=== PATIENT | female | born 1955 | race Caucasian/White ===

== ENCOUNTER 2025-01-30 14:24 | Outpatient (REF) | payer OTHER, MEDICARE, SELFPAY ==
[2025-01-30 17:24] LABS: Urine Cytology See Pathology rpt
--- OUTSIDE RECORDS SUMMARY | 2025-01-30 17:55 | XMS_ITS | Clinical Summary ---
Author Organization [facility] Address [address] [place] [address] Care Team Providers Care Seam Presser Name Role Phone Sara Piper MD Primary Care Provider [phone] Allergies No known active allergies Medications Medication [...] age to complete this topic Care Teams Seam Presser Relationship Specialty Start Date End Date Sara Piper MD [address] [place] [address] PCP - General Family Medicine 10/21/18
== END 2025-01-30 14:25 | disposition home or self-care (01) ==
LOC: HO.LNP 14:24
PROVIDERS: PCP Family Medicine; Visit Provider Urology
DX: R30.0 Dysuria (principal)
CPT/HCPCS: 51798; 81003; 87086; 88112

== ENCOUNTER 2025-01-30 14:24 | Outpatient (AMB) | payer OTHER, MEDICARE, SELFPAY ==
--- NOTE | 2025-01-30 14:38 | MHC.OFFVIS ---
Intake Visit Reasons: uti symptoms Intake Note: New patient presents today for initial visit for uti symptoms Urology Medication:none Blood Thinner:none Antibiotic Allergies:none PVR:0ml's Allergies No Known Allergies Allergy (Verified 01/30/25 15:07) HPI Comments Details: 01/30/25-- History of Present Illness--So is a 69-year-old female who was referred due to persistent UTI symptoms of frequency. The patient states that she had her scheduled farm equipment assembler appointment in 10/12/2024 at that time her farm equipment assembler told her that she had a UTI. She was treated with the antibiotics. She states that the symptoms of urinary frequency did not completely resolve. She also has some intermittent dysuria. She states her farm equipment assembler sent her for a renal ultrasound bladder ultrasound and pelvic ultrasound. I received the ultrasound reports kidney and bladder ultras 4 mg daily ound are within normal limits. She states that her farm equipment assembler placed her on estradiol suppository twice a week. I have discussed further evaluation with office cystoscopy will send urine for surveillance culture and cytology. I have discussed treatment of urinary symptoms with Pyridium x 3 dys and anticholinergic Detrol LA 4mg daily. Urinary Symptoms Review - Increased frequency of urination - Urinary urgency - Nocturia up to 3-4 times per night - Intermittent burning sensation during urination - Pelvic pain - Voiding clear urine frequently - Persistent post-void discomfort Results - Urinalysis: Negative for leukocytes and nitrates - Ultrasound: Normal findings for bladder and kidneys Review of Systems Const All systems reviewed & are unremarkable except as noted in HPI and below Reports no additional complaints Eyes Reports no additional complaints ENT Reports no additional complaints Card Reports no additional complaints Resp Reports no additional complaints GI Reports no additional complaints Reports as per HPI Musc Reports no additional complaints Skin/Breast Reports system reviewed and no additional complaints, except as documented Neuro Reports no additional complaints Psych Reports no additional complaints Endo Reports no additional complaints Ghanshyam/Lymph Reports no additional complaints Aller/Immun Reports no additional complaints Physical Exam Const General: cooperative, healthy appearing and no acute distress Orientation/consciousness: patient oriented x3 HEENT Head: Yes normal to inspection, Yes normocephalic and Yes atraumatic Eyes Conjunctivae: conjunctivae normal Neck Neck: Yes normal visual inspection and Yes trachea midline Chest Chest palpation & inspection: normal inspection of the chest Resp Effort & Inspection: normal respiratory effort GI Inspection: Yes normal to inspection Neuro General: patient oriented x3 Psych Appearance: grossly normal Office Procedures Post Void Residual Post Residual Void Post Void Residual (PVR): 0 [id number] Void Residual by ultrasound Results AMB Urinalysis, Automated UA Leukoctes 0 Luciano/uL Last Edit by Miri Mikey on 01/30/25 15:37 UA Nitrite Negative Last Edit by Miri Jensen on 01/30/25 15:37 UA Urobilinogen 3.5 mg/dL Last Edit by Miri Jensen on 01/30/25 15:37 UA Protein 1 mg/dL Last Edit by Miri Jensen on 01/30/25 15:37 UA pH 5.5 Last Edit by Miri Jensen on 01/30/25 15:37 UA Blood 10 Michael/uL Last Edit by Miri Jensen on 01/30/25 15:37 UA Specific [place] 1.030 Last Edit by Miri Jensen on 01/30/25 15:37 UA Ketone Negative Last Edit by Miri Jensen on 01/30/25 15:37 UA Bilirubin 0 mg/dL Last Edit by Miri Jensen on 01/30/25 15:37 UA Glucose 0 mg/dL Last Edit by Miri Jensen on 01/30/25 15:37 Results Reviewed Results Reviewed: Laboratory Last Values Urine pH (Auto) 5.5 01/30/25 15:23 Specific [place] (Auto) 1.030 01/30/25 15:23 Urine Protein (Auto) 1 mg/dL 01/30/25 15:23 Glucose (UA)(Auto) 0 mg/dL 01/30/25 15:23 Urine Ketones (Auto) Negative 01/30/25 15:23 Urine Blood (Auto) 10 Michael/uL 01/30/25 15:23 Urine Nitrite (Auto) Negative 01/30/25 15:23 Urine Bilirubin (Auto) 0 mg/dL 01/30/25 15:23 Urine Urobilinogen (Auto) 3.5 mg/dL 01/30/25 15:23 Leukocyte Esterase (Auto) 0 Luciano/uL 01/30/25 15:23 Assessment & Plan Assessment & Plan Plan Discussion Notes I discussed with the patient the management plan addressing her irritative urinary symptoms. I explained the rationale for starting Detrol LA to reduce urinary urgency and frequency, and the role of pyridium in alleviating discomfort. The need for a cystoscopy to directly visualize the bladder lining and exclude any structural or pathological causes was reviewed, with the patient providing consent for this procedure. We discussed the continuation of intravaginal estradiol, emphasizing its benefits in maintaining vaginal tissue integrity and potentially alleviating some urinary symptoms. I advised her on the expected outcomes and possible side effects of the new medications and reassured her of close follow-up to assess her progress. Orders: Orders Urine Culture Today Z13.9 - Encounter for screening, unspecified Urine Cytology Today Z13.9 - Encounter for screening, unspecified AMB Urinalysis Automated Today Z13.9 - Encounter for screening, unspecified Medications: New tolterodine ER start tolterodine in 3 days after you have completed the pyridium 4 mg PO DAILY 30 caps 3RF phenazopyridine (Pyridium) take with food 200 mg PO DAILY 3 days 3 tabs 0RF Patient Instructions: Patient Instructions - Begin Detrol LA 4 mg daily for urinary symptoms - Take pyridium 200 mg daily for 3 days for burning sensation - Continue intravaginal estradiol (Vagifem) as prescribed - Schedule and prepare for upcoming cystoscopy - Monitor urinary symptoms and report any significant changes - Follow up as scheduled to discuss treatment progress and results The patient had an opportunity to ask questions regarding treatment plan. The patient expressed understanding and agreement with the above treatment plan. The patient is aware they should contact our office by phone for worsening of their current condition or the appearance of new symptoms. Compliance is encouraged with any medications and followup testing that is ordered. It is a privilege to be allowed the opportunity to participate in the urologic care of your patient. If you have any questions or concerns regarding treatment for the above conditions please do not hesitate to contact me. The office telephone contact is [phone]. This note is constructed in part using voice recognition software. While every effort has been made to ensure accuracy air transportation provider errors may have been included. Yours sincerely, Pepper Escobar MD Scribe Plan - Not visible on output: Patient was informed and verbally consented to the use of an ambient scribe for clinic note documentation during this visit. Coding CPT Codes Post Residual Void - PVR CPT Code: 15612-Xrqg Void Residual by ultrasound ([id number])
--- OUTSIDE RECORDS SUMMARY | 2025-01-30 16:26 | XMS_ITS | Patient Health Record ---
Author Organization [facility] Address [address] [place] [address] Care Team Providers Care Marketer Name Role Phone JAMESON BOLES Primary Care Provider Unavailab drea BlakeShama Unavailable [phone] Allergies No Known Allergies Results Component Value Reference Range Notes Urinalysis Reviewed date:10/12/2024 12:49:44 PM Interpretation: Performing Lab: Notes/Report: NITRITE Neg PH 6.0 PROTEIN Trace S.G 1.015 WBC Large GLUCOSE Neg KETONES Neg UROBILINOGEN Neg BILIRUBIN Neg BLOOD Small Urinalysis, Complete-[id number] Reviewed date:10/14/2024 08:20:37 AM Interpretation: Performing Lab:[facility], [address], Phone - [phone], Director - Mary Notes/Report: Specific Hughes 1.016 1.005-1.030 pH 6.5 5.0-7.5 Urine-Color Yellow Yellow Appearance Clear Clear WBC Esterase 2+ Negative Protein Negative Negative/Trace Glucose Negative Negative Ketones Negative Negative Occult Blood Negative Negative Bilirubin Negative Negative Urobilinogen,Semi-Qn 0.2 0.2-1.0 mg/dL Nitrite, Urine Negative Negative Microscopic Examination See below: Micr oscopic was indicated and was performed. WBC 0-5 0 - 5 /hpf RBC 0-2 0 - 2 /hpf Epithelial Cells (non renal) 0-10 0 - 10 /hpf Casts None seen None seen /lpf Bacteria Many None seen/Few Urine Culture, Routine-[id number] Reviewed date:10/14/2024 08:20:21 AM Interpretation: Performing Lab:[facility], [address] [facility] [address], Phone - [phone], Director - Mary Notes/Report: Urine Culture, Routine Final report Result 1 Beta hemolytic Streptococcus, group B 50,000-100,000 colony forming units per mL Penicillin and ampicillin are drugs of choice for treatment of beta-hemolytic streptococcal infections. Susceptibility testing of penicillins and other beta-lactam agents approved by the FDA for treatment of beta-hemolytic streptococcal infections need not be performed routinely because nonsusceptible isolates are extremely rare in any beta-hemolytic streptococcus and have not been reported for Streptococcus pyogenes (group A). (CLSI) [id number] IGP No Culture 30 Plus Reviewed date:10/25/2024 08:40:06 PM Interpretation: Performing Lab:[facility], [address] [place] [address], Phone - [phone], Director - [facility] Notes/Report: Clinical Information:Vaginal/Cervical, LMP: Men o [id number] Dates / Results....09/13/20 NIL, Neg HPV Other..............Post Menopausal No. of containers..01 ThinPrep Vial DIAGNOSIS: EPITHELIAL CELL ABNORMALITY. ATYPICAL SQUAMOUS CELLS OF UNDETERMINED SIGNIFICANCE (ASC-US). Specimen adequacy: Satisfactory for evaluation. Endocervical and/or squamous metaplastic cells (endocervical component) are present. Clinician provided ICD10: Z0 1.419 Performed by: Lexie Wills, Curriculum Specialist (ASCP) Electronically signed by: Jed Grimaldo MD, Pathologist . . Pathologist provided ICD10: R87.610 Note: The Pap smear is a screening test designed to aid in the detection of premalignant and malignant conditions of the uterine cervix. It is not a diagnostic procedure and should not be used as the sole means of detecting cervical cancer. Both false-positive and false-negative reports do occur. . Test Methodology: This liquid based ThinPrep(R) pap test was screened with the use of an image guided system. HPV Aptima Negative Negative This nucleic acid amplification test detects fourteen high-risk HPV types (16,18,31,33,35,39,45,51,52 ,56,58,59,66,68) without differentiation. HPV Genotype Reflex Criteria not met, HPV Genotype not performed. PDF Report Reviewed date:10/14/2024 08:15:01 AM Interpretation: Performing Lab:[facility], [address] [place] [address], Phone - [phone], Director - Mary Notes/Report: Urinalysis Reviewed date:11/09/2024 01:12:17 PM Interpretation: Performing Lab: Notes/Report: NITRITE Neg PH 6.0 PROTEIN Trace S.G 1.015 WBC Trace GLUCOSE Neg KETONES Neg UROBILINOGEN Neg BILIRUBIN Neg BLOOD Trace Urinalysis, Complete-[id number] Reviewed date:11/11/2024 08:10:54 AM Interpretation: Performing Lab:[facility], [address] [place] [address], Phone - [phone], Director - Mary Notes/Report: Specific Hughes 1.018 1.005-1.030 pH 6.5 5.0-7.5 Urine-Color Yellow Yellow Appearance Clear Clear WBC Esterase Trace Negative Protein Negative Negative/Trace Glucose Negative Negative Ketones Negative Negative Occult Blood Negative Negative Bilirubin Negative Negative Urobilinogen,Semi-Qn 1.0 0.2-1.0 mg/dL Nitrite, Urine Negative Negative Microscopic Examination See below: Micr oscopic was indicated and was performed. WBC 0-5 0 - 5 /hpf RBC None seen 0 - 2 /hpf Epithelial Cells (non renal) 0-10 0 - 10 /hpf Casts None seen None seen /lpf Crystals Present N/A Crystal Type Calcium Oxalate N/A Bacteria None seen None seen/Few Urine Culture, Routine-[id number] Reviewed date:11/11/2024 09:34:13 AM Interpretation: Performing Lab:[facility], [address] [place] [address], Phone - [phone], - Mary Notes/Report: Urine Culture, Routine Final report Result 1 Culture shows less than 10,000 colony forming units of bacteria per milliliter of urine. This colony count is not generally considered to be clinically significant. PDF Report Reviewed date:11/11/2024 08:10:02 AM Interpretation: Performing Lab:[facility], [address] [place] [address], Phone - [phone], - Mary Notes/Report: PDF Report Reviewed date:10/25/2024 08:40:20 PM Interpretation: Performing Lab:[facility], [address] [place] [address], Phone - [phone], - Piedad Notes/Report: Clinical Information:Vaginal/Cervical, LMP: Men o [id number] Dates / Results....09/13/20 NIL, Neg HPV Other..............Post Menopausal No. of containers..01 ThinPrep Vial Reason For Referral No Information Medications Medication SIG (Take, Route, Frequency, Duration) Notes Start Date End Date Status Estradiol 10 MCG 1 tablet Vaginal Two times a Week for 90 days 11/09/2024 Active Levothyroxine Sodium 25 MCG Oral for 90 Active Losartan Potassium 50 MG Oral for 90 Active Vitamin D 25 MCG (1000 UT) 1 tablet Oral ly Once a day for 30 day(s) Active Pravastatin Sodium 20 MG 1 tablet Orally Once a day Active Augmentin 500-125 MG 1 tablet Orally mandie ry 12 hrs for 7 day(s) 10/14/2024 Active Social History Tobacco Use: Social History Observation Description Date Details (start date - stop date) Never Smoker NA - NA Sexual History Question Answer Notes Had sex in the past 12 months (vaginal, oral, or anal)? Yes with Men only Tobacco use other than smoking: Question Answer Notes Are you an other tobacco user? No AUDIT-C (Standard) Question Answer Notes Did you have a drink contain ing alcohol in the past year? Yes How often did you have six o r more drinks on one occasion in the past year? Never (0 point) How many drinks did you have on a typical day when you were drinking in the past year? 1 or 2 drinks (0 point) How often did you have a dri nk containing alcohol in the past year? Monthly or less (1 point) Points 1 Interpretation Negative Tobacco Control (Standard) Question Answer Notes Tobacco use: Nonsmoker Problems Problem Type SNOMED Code ICD Code Onset Dates Problem Status W/U Status Risk Notes Problem Postmenopausal atrophic vaginitis (92469525) Postmenopausal atrophic vaginitis (N95.2) Active confirmed Problem Polyp of corpus uteri (90299193) Polyp of corpus uteri (N84.0) Active confirmed Problem Atrophy of vulva (054679658) Atrophy of vulva (N90.5) Active confirmed Problem Postcoital bleeding (56436535) Postcoital and contact bleeding (N93.0) Active confirmed Problem History of dysplasia of cervix (217425338) Personal history of cervical dysplasia (Z87.410) Active confirmed Problem Essential hypertension (66540187) Unspecified essential hypertension (401.9) Active confirmed Major Problem Infective arthritis (disorder) (949117417) Unspecified infective arthritis, site unspecified (711.90) Active confirmed Major Problem Postmenopausal bleeding (25825036) Postmenopausal bleeding (627.1) Active confirmed Major Problem Menopausal symptom (91997546) Symptomatic menopausal or female climacteric states (627.2) Active confirmed Major Problem Atypical glandular cells on cervical Papanicolaou smear (458325299) Abnormal glandular Papanicolaou smear of cervix (795.00) Active confirmed Major Problem Gynecological examination normal (744292442444247) Routine gynecological examination (V72.31) Active confirmed Problem Screening for malignant neoplasm of colon (859992022) Special screening for malignant neoplasms, colon (V76.51) Active confirmed Major Vital Signs Temperature 97.7 degrees Fahrenheit 11/09/2024 Blood pressure diastolic 80 mm Hg 11/09/2024 Height 63 in 11/09/2024 Blood pressure systolic 140 mm Hg 11/09/2024 Weight 205 lbs 11/09/2024 BMI 36.31 kg/m2 11/09/2024 Encounters Encounter Location Date Provider Diagnosis [facility] [address] [address] 10/12/2024 Shama Blake Encounter for gynecological examination (general) (routine) without abnormal findings Z01.419 ; Encounter for screening mammogram for malignant neoplasm of breast Z12.31 ; Unspecified lump in the right breast, overlapping quadrants N63.15 ; Nocturia R35.1 ; Personal history of cervical dysplasia Z87.410 ; Encounter for screening for osteoporosis Z13.820 and Postmenopausal atrophic vaginitis N95.[address] [address] 11/09/2024 Shama Blake Frequency of micturition R35.0 ; Left lower quadrant pain R10.32 and Postmenopausal atrophic vaginitis N95.[address] [address] 10/14/2024 Shama Blake [facility] [address] [address] 11/29/2024 Shama Blake Assessments Encounter Date Diagnosis (ICD Code) Assessment Notes Treatment Notes Treatment Clinical Notes Section Notes 10/12/2024 Encounter for gynecological examination (general) (routine) without abnormal findings (ICD-10 - Z01.419) PAP TEST WITH HPV TYPING WAS OBTAINED. 11/09/2024 Frequency of micturition (ICD-10 - R35.0) DISCUSSED COMMON CAUSES OF URGENCY AND FREQUENCY. UA AND URINE C/S INCREASE FLUID INTAKE. 11/09/2024 Left lower quadrant pain (ICD-10 - R10.32) PELVIC AND RETROPERITONEAL ULTRASOUNDS WERE ORDERED. 10/12/2024 Encounter for screening mammogram for malignant neoplasm of breast (ICD-10 - Z12.31) REGULAR MAMMOGRAMS AND SBE'S WERE RECOMMENDED. 10/12/2024 Unspecified lump in the right breast, overlapping quadrants (ICD-10 - N63.15) DISCUSSED FINDINGS AND ORDERED DIAGNOSTIC MAMMOGRAM AND LEFT BREAST ULTRASOUND. 11/09/2024 Postmenopausal atrophic vaginitis (ICD-10 - N95.2) DISCUSSED FINDINGS, DX AND TX OPTIONS. DISCUSSED HOW INTRAVAGINAL ESTROGEN MAY HELP DECREASE UTI RISKS. SHE AGREED TO TRY YUVAFEM. RX AND INSTRUCTIONS WERE GIVEN. 10/12/2024 Nocturia (ICD-10 - R35.1) OFFICIAL UA AND URINE C/S DISCUSSED BLADDER TRAINING. 10/12/2024 Personal history of cervical dysplasia (ICD-10 - Z87.410) DISCUSSED PREVIOUS HX OF TAINA AND SUBSEQUENTLY NEGATIVE PAP TESTS. REPEAT PAP TEST WITH HPV TYPING WAS OBTAINED TODAY. 10/12/2024 Encounter for screening for osteoporosis (ICD-10 - Z13.820) BONE DENSITY WAS ORDERED. 10/12/2024 Postmenopausal atrophic vaginitis (ICD-10 - N95.2) DISCUSSED FINDINGS, DX AND TX OPTIONS. ENCOURAGED PAT TO USE ESTRADIOL CREAM. BENEFITS AND RISKS WERE AGAIN DISCUSSED. Plan Of Treatment Pending Test Test Name Order Date Sonohysterogram 12/26/2021 MAMMOGRAM, SCREENING 10/01/2022 MAMMOGRAM, SCREENING 04/18/2015 MAMMOGRAM, SCREENING 09/30/2021 MAMMOGRAM, SCREENING 10/12/2024 Urinalysis 09/30/2021 Urinalysis 12/26/2021 Urinalysis 07/06/2018 Urinalysis 08/24/2019 Ultrasound : Retroperitoneal 11/09/2024 ENDOMETRIAL BX 12/26/2021 DIAGNOSTIC MAMMOGRAM, LEFT BREAST 2023 BONE DENSITY 10/12/2024 BONE DENSITY 07/06/2018 BONE DENSITY 10/07/2023 MM Digital Mammo Screening 10/12/2024 MM Digital Mammo Screening 10/07/2023 MM Digital Mammo Screening 09/30/2021 MM Digital Mammo Screening 10/01/2022 MM Digital Mammo Screening 07/06/2018 Left Breast Ultrasound 10/12/2024 PELVIC ULTRASOUND W/TRANSVAGINAL 024 Next Appt Details Provider Name:Shama moyer, 10/13/2025 09:10:00 AM, [address], [address], [place], [address], Insurance Providers Payer Name Payer Address Payer Phone Subscriber Number Group Number Insured Name Patient Relationship to Insured Coverage Start Date Coverage End Date MEDICARE [address] [facility] [place] [id number] JAIR ROMO Self - patient is the insured [facility] [address] [place] [address] [id number] JAIR ROMO Self - patient is the insured Medical (General) History Medical History History ICD Code Essential (primary) hypertension I10 Menopausal and female climacteric states N95.1 Postmenopausal bleeding N95.0 Direct infection of unspecif ied joint in infectious and parasitic diseases classified elsewhere M01.X0 Unspecified abnormal cytological finding s in specimens from cervix uteri R87.619 Hemorrhage of anus and rectum K62.5 Hyperlipidemia, unspecified E78.5 Atrophy of vulva N90.5 Personal history of cervical dysplasia Z 87.410 Postmenopausal atrophic vaginitis N95.2 Mastodynia N64.4 Postcoital and contact bleeding N93.0 Polyp of corpus uteri N84.0 Surgical History Surgery Date(Month/Year) Appendectomy Pelviscopy Lysis of Adhesions Excision of Tubalar Lesion Colonoscopy 2011 Left Knee Surgery EMB & Polypectomy 02/06/12 Bilateral Tubal Ligation Laparoscopy Total Right Knee Replacement 07/11/19 Hospitalization History Reason Date(Month/Year) See Surgical Hx 2 Vaginal Deliveries
--- OUTSIDE RECORDS SUMMARY | 2025-01-30 16:26 | XMS_ITS | Clinical Summary ---
Author Organization [facility] Address [address] [place] [address] Care Team Providers Care Cap Jewel Plate Assembler Name Role Phone Sara Piper MD Primary Care Provider Allergies No known active allergies Medications Medication Sig Dispensed Refills Start Date End Date Status lisinopril (PRINIVIL,ZESTRIL) tablet 10 mg Take 10 mg by mouth daily. 1 10/27/2018 Active piroxicam (FELDENE) 20 MG capsule TAKE 1 CAPSULE BY MOUTH EVERY DAY WITH FOOD 0 09/28/2018 Active pravastatin (PRAVACHOL) tablet 20 mg TAKE 1 TABLET AT BEDTIME 3 11/08/2018 Active tiZANidine (ZANAFLEX) 2 MG tablet TAKE 1-3 TABLETS BY MOUTH AT BEDTIME NEEDED 1 09/08/2018 Active omeprazole (PriLOSEC) 20 MG capsule TAKE 1 CAP BY MOUTH DAILY. REGULARLY FOR 6 WEEKS THEN NEEDED FOR HEART BURN 3 03/02/2019 Active omeprazole (PriLOSEC) 20 MG capsule Take 20 mg by mouth. 0 03/02/2019 Active Family History Medical History Relation Name Comments Cancer Father Cancer Mother Clotting disorder Mother Relation Name Status Comments Father Mother Social History Tobacco Use Types Packs/Day Years Used Date Smoking Tobacco: Never Assessed Sex and Gender Information Value Date Recorded Sex Assigned at Not on file Gender Identity Not on file Sexual Orientation Not on file Job Start Date Occupation Industry Not on file Not on file Not on file Last Filed Vital Signs Vital Sign Reading Time Taken Comments Blood Pressure - - Pulse - - Temperature - - Respiratory Rate - - Oxygen Saturation - - Inhaled Oxygen Concentration - - Weight 86.2 kg (190 lb) 12/09/2018 10:23 AM EST Height 160 cm (5' 3 ) 12/09/2018 10:23 AM EST Body Mass Index 33.66 12/09/2018 10:23 AM EST Plan of Treatment Health Maintenance Due Date Last Done Comments Hepatitis C Screening 1955 COVID-19 Vaccine (#1) 06[birth year]01/1957 Depression Screening 1968 BMI Counseling 1974 Preventative Health Evaluation 1974 DTap / Tdap / Td (1 - Tdap) 1975 Colon Cancer Screening (Colonoscopy) 2001 Breast Cancer Screening (Mammogram) 2006 Shingrix-Zoster Vaccine (1 of 2) 2006 Fall Risk Assessment 2021 Osteoporosis Screening (DEXA Scan) 2021 Pneumococcal Vaccine (1 of 1 - PCV) 2021 Influenza Vaccine (#1) 2024 RSV Adult > 60+ Yrs or Pregn ant (1 - 1-dose 75+ series) 2031 Hepatitis B Vaccines Aged Out No long er eligible based on patient's age to complete this topic RSV Ped < 20 months Aged Out No longe r eligible based on patient's age to complete this topic Care Teams Cap Jewel Plate Assembler Relationship Specialty Start Date End Date Sara Piper MD [address] [place] [address] PCP - General Family Medicine 10/21/18
--- OUTSIDE RECORDS SUMMARY | 2025-01-30 16:26 | XMS_ITS ---
Author Organization [facility] Address [address] [place] [address] Care Team Providers Care Time Study Technologist Name Role Phone JAMESON BOLES Primary Care Provider Unavailab drea BlakeNellali Unavailable [phone] Allergies No Known Allergies Results Component Value Reference Range Notes Urinalysis Reviewed date:11/09/2024 01:12:17 PM Interpretation: Performing Lab: Notes/Report: NITRITE Neg PH 6.0 PROTEIN Trace S.G 1.015 WBC Trace GLUCOSE Neg KETONES Neg UROBILINOGEN Neg BILIRUBIN Neg BLOOD Trace Urinalysis, Complete-[id number] Reviewed date:11/11/2024 08:10:54 AM Interpretation: Performing Lab:[facility], [place] [facility], Phone - [phone], Director - Mary Notes/Report: Specific [place] 1.018 1.005-1.030 pH 6.5 5.0-7.5 Urine-Color Yellow [...] Bacteria None seen None seen/Few Urine Culture, Routine-[id number] Reviewed date:11/11/2024 09:34:13 AM Interpretation: Performing Lab:[facility], [address] [place] [facility], [place], Phone - [phone], Director - Mary Notes/Report: Urine Culture, Routine Final report Result 1 Culture shows less than 10,000 colony forming units of bacteria per milliliter of urine. This colony count is not generally considered to be clinically significant. PDF Report Reviewed date:11/11/2024 08:10:02 AM Interpretation: Performing Lab:[facility], [address], [place], Phone - [phone], Director - Mary Notes/Report: REASON FOR VISIT ? UTI Medications Medication SIG (Take, Route, Frequency, Duration) Notes Start Date End Date Status Estradiol 10 MCG 1 tablet Vaginal Two times a Week for 90 days 11/09/2024 Active Levothyroxine Sodium 25 MCG Oral for 90 Active Losartan Potassium 50 MG Oral for 90 Active Pravastatin Sodium 20 MG 1 tablet Orally Once a day Active Augmentin 500-125 MG 1 tablet Orally mandie ry 12 hrs for 7 day(s) 10/14/2024 Active Vitamin D 25 MCG (1000 UT) 1 tablet Oral ly Once a day for 30 day(s) Active Vital Signs Temperature 97.7 degrees Fahrenheit 11/09/20 24 Blood pressure systolic 140 mm Hg 11/09/20 24 Blood pressure diastolic 80 mm Hg 024 Height 63 in 11/09/2024 Weight 205 lbs 11/09/2024 BMI 36.31 kg/m2 11/09/2024 Encounters Encounter Location Date Provider Diagnosis [address] [address] 11/09/2024 Shama Blake Frequency of micturition R35.0 ; Left lower quadrant pain R10.32 and Postmenopausal atrophic vaginitis N95.2 Assessments Encounter Date Diagnosis (ICD Code) Assessment Notes Treatment Notes Treatment Clinical Notes Section Notes 11/09/2024 Frequency of micturition (ICD-10 - R35.0) DISCUSSED COMMON CAUSES OF URGENCY AND FREQUENCY. UA AND URINE C/S INCREASE FLUID INTAKE. 11/09/2024 Left lower quadrant pain (ICD-10 - R10.32) PELVIC AND RETROPERITONEAL ULTRASOUNDS WERE ORDERED. 11/09/2024 Postmenopausal atrophic vaginitis (ICD-10 - N95.2) DISCUSSED FINDINGS, DX AND TX OPTIONS. DISCUSSED HOW INTRAVAGINAL ESTROGEN MAY HELP DECREASE UTI RISKS. SHE AGREED TO TRY YUVAFEM. RX AND INSTRUCTIONS WERE GIVEN. Plan Of Treatment Medication Medication Name Sig Start Date Stop Date Notes Estradiol 10 MCG 1 tablet Vaginal Two times a Week for 90 days 11/09/2024 Treatment Notes Assessment Notes Frequency of micturition DISCUSSED COMMON CAUSES OF URGENCY AND FREQUENCY. UA AND URINE C/S INCREASE FLUID INTAKE. Left lower quadrant pain PELVIC AND RETR OPERITONEAL ULTRASOUNDS WERE ORDERED. Postmenopausal atrophic vaginitis DISCUSSED FINDINGS, DX AND TX OPTIONS. DISCUSSED HOW INTRAVAGINAL ESTROGEN MAY HELP DECREASE UTI RISKS. SHE AGREED TO TRY YUVAFEM. RX AND INSTRUCTIONS WERE GIVEN. Pending Test Test Name Order Date Ultrasound : Retroperitoneal 11/09/2024 PELVIC ULTRASOUND W/TRANSVAGINAL 024 Next Appt Details Follow Up: prn, Reason: Provider Name:Shama moyer, 10/13/2025 09:10:00 AM, [address], [address], [place], [address], Progress Notes * JAIR ROMODOB:1955 (68 yo F)Acc No.[id number]:11/09/2024 PROGRESS NOTES Patient:?CLARISSA JAIR Appointment Provider:?Shama moyer M.D. :1955???Age:68 Y???Sex:Female D ate:11/09/2024 Address:[address] [place], [place] [id number] Pcp:JAMESON BOLES Subjective: * Chief Complaints: * ? UTI * HPI: ???New/Follow-up Patient Consult:? PAT WAS JUST TREATED FOR A UTI LAST SEPTEMBER WITH A 7 DAY COURSE OF AUGMENTIN AFTER A POSITIVE URINE C/S RESULT.? SHE HAD C/O URGENCY AND FREQUENCY.? HER SYMPTOMS HAVE NOT RESOLVED.? SHE NOW ALSO C/O LLQ PAINS.? SHE DENIES DYSURIA BUT HAS PRESSURE SYMPTOMS AFTER URINATION.? NO FEVER OR FLANK PAINS. * ROS:?general:?no?chest pain.?no?palpitations.?no?headache.?no?cough.?no?shortness of breath.?no?fever.?no?unexplained weight loss.?no?nausea/vomiting.?no?change in bowel movements.?no blood in stool.?genitourinary complaints?yes,?URGENCY AND FREQUENCY AND PRESSURE DISCOMFOR AFTER URINATION.?no?skin complaints.? * Medical History:? * Programming Coordinator History:?/ Para?3/2.?Sexual activity?currently sexually active.?Last Pap Smear:?10/12/24 ASCUS, NEG HPV, 09/13/20 NIL, NEG HPV, 05/20/2017 NIL, NEG HRHPV.?Mammogram:?01/22/24 < 50% density, 01/21/23 < 50% density, 01/20/22 < 50% density, 12/18/20 Unilat Left, 12/09/20 < 50% density, 11/04/19 < 50% density, 02/2018 normal, 07/25/2015 , < 50% density.?LMP and menses?Calvin.? Control:?Bilateral Tubal Ligation.?Colonoscopy?yes 2017.?Bone Density:?11/04/192011.? * OB History:?Total pregnancies?3.?Total living children?2.?NVD?2.? * Medications:?TakingVitamin D 25 MCG (1000 UT) Tablet 1 tablet Orally Once a day Pravastatin Sodium 20 MG Tablet 1 tablet Orally Once a day Levothyroxine Sodium 25 MCG Tablet Oral Losartan Potassium 50 MG Tablet Oral Augmentin 500-125 MG Tablet 1 tablet Orally every 12 hrs Taking Vitamin D 25 MCG (1000 UT) Tablet 1 tablet Orally Once a day Taking Pravastatin Sodium 20 MG Tablet 1 tablet Orally Once a day Taking Levothyroxine Sodium 25 MCG Tablet Oral Taking Losartan Potassium 50 MG Tablet Oral Taking Augmentin 500-125 MG Tablet 1 tablet Orally every 12 hrs * Allergies:?N.K.D.A.no[Allerg ies Verified] Objective: * Vitals:?Ht: 63 in, Wt: 205 l bs, BMI:36.31Index, BP: 140/80 mm Hg, Temp: 97.7 F. * Examination: ???General Examination: ?GENERAL APPEARANCE:?in no acute distress, well developed, well nourished.?BACK:?NO CVA TENDERNESS.?GINNER HELPER exam: ?EXTERNAL GENITALIA:?Normal female. No lesions, erythema or discharge.?VAGINA:?atrophic changes.?CERVIX:?No cervical motion tenderness, discharge or lesions.?UTERUS:?normal size, shape and consistency, normal mobility, nontender.?ADNEXA:?no masses or tenderness bilaterally.? Assessment: * Assessment: 1.?Frequency of micturition - R35.0???2.?Left lower quadrant pain - R10.32???3.?Postmenopausal atrophic vaginitis - N95.2??? Plan: * Treatment: ? Value Reference Range ?NITRITE Neg * ?PH 6.0 * ?PROTEIN Trace * ?S.G 1.015 * ?WBC Trace * ?GLUCOSE Neg * ?KETONES Neg * ?UROBILINOGEN Neg * ?BILIRUBIN Neg * ?BLOOD Trace * DBRUCE García 11/09/2024 08:18:5 1 AM EST > U/A and Urine C/S Sent for PREMA Notes: DISCUSSED COMMON CAUSES OF URGENCY AND FREQUENCY. UA AND URINE C/S INCREASE FLUID INTAKE.??2.?Left lower quadrant pain?Imaging: Ultrasound : Retroperitoneal* RENAL AND BLADDER ?Imaging: PELVIC ULTRASOUND W/TRANSVAGINAL* BOOKED AT [facility] [place] - 11/24/24 @ 5:45 PM ([facility] AT 5:30 PM) DAILY ENTRANCE. FULL BLADDER PREP: DRINK 32 OUNCES OF WATER ONE HOUR BEFORE AND HOLD. ORDER FAXED/PAT Notes: PELVIC AND RETROPERITONEAL ULTRASOUNDS WERE ORDERED.??3.?Postmenopausal atrophic vaginitis? Start Estradiol Tablet, 10 MCG, 1 tablet, Vaginal, Two times a Week, 90 days, 24 Tablet, Refills 3. ? Notes: DISCUSSED FINDINGS, DX AND TX OPTIONS. DISCUSSED HOW INTRAVAGINAL ESTROGEN MAY HELP DECREASE UTI RISKS. SHE AGREED TO TRY YUVAFEM. RX AND INSTRUCTIONS WERE GIVEN.?? * Procedure Codes:? * Follow Up:?prn * Images: Billing Information: * Visit Code:? * Procedure Codes:? * Sign off status: Completed true * Appointment Provider:?Shama Blake M.D. Date:?11/09/2024 Generated for [place] zhou/Suzanne/eTransmitting on:?01/30/2025 04:26 PM EDT History and Physical Notes * HPI (History of Present Illness) Category Sub-Category Detail Notes Category Not es New/Follow-up Patient Consult PAT WAS JUST TREATED FOR A UTI LAST SEPTEMBER WITH A 7 DAY COURSE OF AUGMENTIN AFTER A POSITIVE URINE C/S RESULT. SHE HAD C/O URGENCY AND FREQUENCY. HER SYMPTOMS HAVE NOT RESOLVED. SHE NOW ALSO C/O LLQ PAINS. SHE DENIES DYSURIA BUT HAS PRESSURE SYMPTOMS AFTER URINATION. NO FEVER OR FLANK PAINS. Examination Category Sub-Category Detail Notes Category Not es General Examination GENERAL APPEARANCE: in no ac frank distress, well developed, well nourished BACK: NO CVA TENDERNESS GINNER HELPER exam CERVIX: No cervical motion tendernes s, discharge or lesions VAGINA: atrophic changes EXTERNAL GENITALIA: Normal female. No le sions, erythema or discharge UTERUS: normal size, shape a nd consistency, normal mobility, nontender ADNEXA: no masses or tendern ess bilaterally
--- OUTSIDE RECORDS SUMMARY | 2025-01-30 16:26 | XMS_ITS | Data Portability ---
Author Organization [facility], , [facility] Address [address] [place] [address] Care Team Providers Care Patient Service Representative Name Role Phone JAMESON PIPER Primary Care Provider [phone] Assessment No assessment recorded. Plan of Treatment Reminders Order Date Submit Date Provider Last Modified By Organization Details Last Modified Time Details Appointments None recorded. Lab erythrocyte sedimentati on rate by westergren method 2015 016 [id number] [facility], [address] [place] [address], [address], 6 04:02:42 C-reactive protein, quantitativ e, serum or plasma 2015 016 [id number] [facility], [address] [place] [address], [address], 6 04:02:42 rf (rheumatoid factor), serum 2015 [id number] [facility], [address] [place] [address], [address], 6 04:02:42 ccp (cyclic citrullinat ed peptide) igg, serum 2015 016 [id number] [facility], [address] [place] [address], [address], 6 04:02:42 SAVITA (antinuclea r antibodies) screen, serum 2015 016 [id number] [facility], [address] [place] [address], [address], 6 04:02:42 CBC 2015 016 [facility], [address] [place] [address], [address], 6 04:02:42 roc screen, serum - cc Dr Piper ([place]) 2015 016 [facility], [address] [place] [address], [address], 6 04:02:42 Referral None recorded. Procedures None recorded. Surgeries None recorded. Imaging unlisted imaging order - x-ray, thoracic spine 2015 016 [facility] ([facility]aging), [address], [place], [address], 6 04:02:52 Medication Orders Vitamin D2 1,250 mcg (50,000 unit) capsule 2015 016 [id number], [address] [place], [address], 6 04:02:45 tizanidine 4 mg tablet 2015 016 [id number], [address] [place], [address], 6 04:02:41 Patient TargetsNo targets recorded. Patient InstructionsNo instructions recorded. Reason for Referral None Reported. Results Created Date Observation Date Name Description Value Unit Range Abnormal Flag Note LastModifiedBy Organization Detail LastModifiedTime 05/14/20 16 05/14/2016 CBC WBC 4.8 K/? ? ?L 4.0-10 .0 Not Available [address], [address], 05/14/2016 11:11:01 05/14/20 16 05/14/2016 CBC RBC 4.49 M/? ? ?L 3.93-5 .22 Not Available [address], [address], 05/14/2016 11:11:01 05/14/20 16 05/14/2016 CBC HGB 13.6 g/dL 11.2-1 5.7 Not Available [address], [address], 05/14/2016 11:11:01 05/14/20 16 05/14/2016 CBC HCT 39.4 % 34.1-4 4.9 Not Available [address], [address], 05/14/2016 11:11:01 05/14/20 16 05/14/2016 CBC MCV 87.8 ? ? ?L 79.4-9 4.8 Not Available [address], [address], 05/14/2016 11:11:01 05/14/20 16 05/14/2016 CBC MCH 30.3 pg 25.6-3 2.2 Not Available [address], [address], 05/14/2016 11:11:01 05/14/20 16 05/14/2016 CBC MCHC 34.5 g/dL 32.2-3 5.5 Not Available [address], [address], 05/14/2016 11:11:01 05/14/20 16 05/14/2016 CBC plt 273.0 K/? ? ?L 182.0- 369.0 Not Available [address], [address], 05/14/2016 11:11:01 05/14/20 16 05/14/2016 CBC MPV 8.7 9.4-12 .3 low Not Available [address], [address], 05/14/2016 11:11:01 05/14/20 16 05/14/2016 CBC neut% 63.9 % 34.0-7 1.1 Not Available [address], [address], 05/14/2016 11:11:01 05/14/20 16 05/14/2016 CBC neut# 3.1 1.6-6. 1 Not Available [address], [address], 05/14/2016 11:11:01 05/14/20 16 05/14/2016 CBC lymph % 28.1 % 19.3-5 1.7 Not Available [address], [address], 05/14/2016 11:11:01 05/14/20 16 05/14/2016 CBC lymph # 1.3 K/? ? ?L 1.2-3. 7 Not Available [address], [address], 05/14/2016 11:11:01 05/14/20 16 05/14/2016 CBC mono% 5.5 % 4.7-12 .5 Not Available [address], [address], 05/14/2016 11:11:01 05/14/20 16 05/14/2016 CBC mono# 0.3 0.2-0. 6 Not Available [address], [address], 05/14/2016 11:11:01 05/14/20 16 05/14/2016 CBC eo% 1.9 % 0.7-5. 8 Not Available [address], [address], 05/14/2016 11:11:01 05/14/20 16 05/14/2016 CBC eo# 0.1 0.0-0. 4 Not Available [address], [address], 05/14/2016 11:11:01 05/14/20 16 05/14/2016 CBC baso% 0.6 % 0.1-1. 2 Not Available [address], [address], 05/14/2016 11:11:01 05/14/20 16 05/14/2016 CBC baso# 0.0 0.0-0. 1 Not Available [address], [address], 05/14/2016 11:11:01 05/14/20 16 05/14/2016 CBC RDW-CV 12.3 % 11.7-1 4.4 Not Available [address], [address], 05/14/2016 11:11:01 05/14/20 16 05/14/2016 eryth rocyt e sedim entat ion rate by ale johnson sed rate 15.0 0.0-15 .0 Not Available [address], [address], 05/14/2016 13:02:50 05/14/20 16 05/14/2016 C-joao ctive prote in, quant itati ve, serum or plasm a C-reactive protein -quant <2.0 mg/L 0.0-9. 0 < Not Available [address], [address], 05/14/2016 14:44:15 05/14/20 16 05/15/2016 rf (rheu matoi d facto r), serum rheumatoid factor 5.2 IU/mL 0.0-16 .0 <16.0 IU/mL - Negat goldie 16.0- 19.9 IU/mL - Equiv ocal >20.0 IU/mL - Posit goldie Not Available [address], [address], 05/15/2016 14:17:20 05/14/20 16 05/15/2016 SAVITA (anti nucle ar antib odies ) scree n, serum SAVITA screen 0.32 0.00-0 .39 <0.4 -Nega tive 0.40 - 1.10 -Equi vocal >1.10 -Posi tive Not Available [address], [address], 05/15/2016 14:17:21 05/14/20 16 05/15/2016 roc scree n, serum roc-6 screen 0.03 <0.89 <0.9 -Nega tive 0.9 - 1.09 -Equi vocal >=1.1 0 -Posi tive Not Available [address], [address], 05/15/2016 14:17:21 05/14/20 16 05/20/2016 ccp (cycl ic citru llina little pepti de) igg, serum anti-citrull ine peptide Ab 1 U/mL <5 Not Available [address], [address], 05/20/2016 13:42:13 05/14/20 16 05/14/2016 x-ray , thora cic spine OBSERV ATION: Thorac ic spine 3 views Long-s jarad negro Dorsal spine pain The disc spaces , alignm ent, and minera lizati on are well mainta ined. The parave rtebra l soft tissue s are normal . There is no eviden ce of compre ssion fractu re or signif icant degene rative disc diseas e Impres viry: No signif icant radiog raphic abnorm ality Electr onical ly signed Readin g Physic ezekiel: Wesley Rice [facility] [address] , [place], [address], 05/21/2016 08:45:31 Result Notes None recorded. Problems Name Problem SNOMED Code Status Onset Date Resolution Date Notes Provider Name and Address Organization Details Recorded Time Multiple joint pain 84253282 Active 2015 Krishna Stauffer MD [address] [place], [place] [address], [address], [facility] [place] 10:07:01 Myofascial pain 404615190 Active 2015 Krishna Stauffer MD [address] [place], [place] [address], [address], [facility] [place] 16:40:28 Vitamin D deficiency 93170510 Active 2015 Krishna Stauffer MD [address] [place] [address], [place], [address], [facility] [place] 16:40:39 Osteoarthritis of knee 647449667 Active 2015 Krishna Stauffer MD [address] [place] [address] [place], [address], [facility] [place] 16:56:25 Problem Notes None recorded. Procedures Surgical History None recorded. Imaging Results Imaging Date Name Status LastModified by Organiz ation Details LastModified Time 05/14/2016 x-ray, thoracic spine completed [facility] [address] , [place], [address], 05/21/2016 08:45:31 Procedure Notes None recorded. Medical Equipment None Reported. Allergies No known drug allergies Medications Name Sig Start Date Stop Date Status Note LastModified by Organization Details LastModified Time tizanidine 4 mg tablet 1 or 2 po qhs as directed active Not Available Not Available No t Available clotrimazole-b etamethasone 1 %-0.05 % topical cream active Not Available Not Availabl e Not Available omeprazole 20 mg capsule,delaye d release active Not Available Not Available No t Available Vitamin D2 1,250 mcg (50,000 unit) capsule Take 1 capsule every week by oral route. active Not Available Not Available No t Available cholecalcifero l (vitamin D3) 25 mcg (1,000 unit) capsule TAKE ONE CAPSULE BY MOUTH EVERY DAY active Not Available Not Available No t Available Claritin active Not Available Not Avai lable Not Available Vitals Date Recorded Body weight Body height Body mass index (BMI) Heart rate Systolic blood pressure Diastolic blood pressure Systolic blood pressure Diastolic blood pressure Provider Name and Address Organization Details Last Updated DateTime 6 60066.9 5 g 160.02 cm 38.3 kg/m2 80 /min 180 mm[Hg] 100 mm[Hg] 160 mm[Hg] 80 mm[Hg] Rj Franco LPN [facility] 6 09:16:36 Social History Question Answer Notes LastModified by Organizat ion Details LastModified Time Tobacco Smoking Status Never Smoker Rj Franco LPN [facility], [facility] 05/14/2016 09:18:34 What Is Your Level Of Alcohol Consumption? Occasional Information not available 05/14/2016 How Much Tobacco Do You Chew? 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 0 [email or web address] Information not available 05/14/2016 Marital Status Informatio n not available 05/14/2016 Sex: Unknown Functional Status None recorded. Mental Status None recorded. Family History Nothing Reported. Medical History Condition Response Osteoarthritis Y Hyperlipidemia Y Hypertension Y Gynecological HistoryNo gynecological history recorded. Obstetrics History GPAL:G 0 P 0 0 0 0 Past Encounters Encounter ID Performer Location Encounter Start Date Encounter Closed Date Diagnosis/Indication Diagnosis SNOMED-CT Code Diagnosis ICD10 Code Diagnosis Note [id number] Krishna Stauffer [place] [facility] [place] [facility] [address] [place] [address] 05/14/2016 08:59:58 05/14/2016 10:13:03 Multiple joint pain 20242101 M25.50 Myofascial pain 08889977 9 M79.1 This patient is describing a few years of widespread musculoske letal pains, but on questionin g, the primary area of discomfort is in the right scapular region or just below the lower aspect of the shoulder blade. It seems muscular. The area is slightly tender. Movement of the spine does not seem to reproduce the symptoms. She has features suggesting a component of myofascial pain syndrome/f ibromyalgi a. She has a nonrestora tive, disrupted sleep. She has a mild degree of post exertional exhaustion . She lacks widespread allodynia however. It is likely that the discomfort felt in this region is indeed muscular . The fact that it has been present for 2 or 3 years, possibly longer, is reassuring in terms of excluding other etiology. Her other aches and pains seem probably more degenerati ve. She certainly is known to have degenerati ve arthritis of the knees. She seemed to have some degenerati ve arthritis at the base of the right thumb. Diagnostic ally, check an x-ray of the thoracic spine. Screen with sedimentat ion rate CRP etc. She does describe some dryness of eyes and mouth. Doubt Sjogren's but will check antibodies . She is known to have vitamin D deficiency and this was recently reconfirme d. She is not currently taking supplement . I suggested we try treating the mid back pain has a localized myofascial pain syndrome. Try nighttime tizanidine to improve her sleep pattern. She can try local measures such as local heat, massage etc. If she is intolerant of the tizanidine or if it does not help, she could call back. Perhaps try baclofen. Vitamin D deficiency 347 12358 E55.9 She is known to have vitamin D deficiency and this was recently reconfirme d. She is not currently taking supplement . Start vitamin D 50,000 units weekly for 12 weeks and discuss with primary care. Osteoarthr itis of knee 292445978 M17.9 Known degenerati ve arthritis of both knees. She has had arthroscop ic surgery on the left, was told by Dr. Rao that this was bone-on-b one . There are bilateral knee effusions. She is a candidate for cortisone injection or perhaps a trial of Supartz etc. Health Concerns Section Related Observation LastModified by Organization Detai ls LastModified Time None Recorded Concern Status LastModified by Organization Details LastModified Time None Recorded Advance Directives Directive None Recorded Payers Encounter Date Sequence Insurance Name Policy Number Policy Doan Covered Member ID Doan Member ID Guarantor Name 05/14/2016 1 [facility] ([employer]) [id number] Madi Hernández [id number] Vanesa Hernández Notes Date Note Type Note Provider Name and Address Organization Details Recorded Time 05/14/2016 text/html This is a pleasa nt 60-year-old woman referred at the suggestion of with widespread musculoskeletal pain,? Fibromyalgia. She relates to me that she has had widespread pain for several years but her most persistent and bothersome symptom has been pain in the scapular region. This specific pain has been present for more than 2 years, gradually getting worse she says. It feels muscular. It is present all the time, no worse with bending or twisting. It is a little bit more uncomfortable after she has been working. 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 In addition to this back is comfort, she has specific pains at the base of the right thumb worse with grasping. She has bilateral knee pains, had fairly recent left arthroscopic surgery and was told it was feot-of-yprw . The symptoms are worse after prolonged standing. She does not like taking medication. She takes occasional low-dose ibuprofen which does not really help. She has seen a chiropractor and has done some physical exercises on her own without much improvement. On specific questioning, she sleeps very poorly. She has no trouble falling asleep at wakes up at 2 in the morning, cannot get comfortable. Sleep is nonrestorative. She denies any daytime hypersomnolence however. She did have a sleep study in the past showing no prominent obstructive apnea. There is no prominent morning stiffness in her joints. She sees no prominent swelling except for a little bit of dependent swelling in her ankles and feet. Krishna Stauffer MD [address] [place] [address], [address], [facility] 05/14/2016 17:06:39 OBGyn Episode No OBEpisode recorded.
--- OUTSIDE RECORDS SUMMARY | 2025-01-30 16:26 | XMS_ITS ---
Author Organization [employer] Address [address] [place] [address] Care Team Providers Care Sieve Maker Name Role Phone JAMESON BOLES Primary Care Provider Unavailab Shama Francis Unavailable [phone] REASON FOR VISIT STILL W/PAIN AND URINARY ISSUE Encounters Encounter Location Date Provider Diagnosis [employer] [address] [facility] [address] [place] [address] 11/29/2024 Shama Blake Plan Of Treatment Next Appt Details Provider Name:Shama moyer, 10/13/2025 09:10:00 AM, [address] [facility], [address], [place], [address], Progress Notes * JAIR ROMODOB:1955 (68 yo F)Acc No.[id number]:11/29/2024 Patient:?JAIR ROMO :1955???Age:68 Y???Sex:Female Address:[address] [place] [address], [address] * true * Date:? Generated for Printi ng/Suzanne/eTransmitting on:?01/30/2025 04:26 PM EDT
--- OUTSIDE RECORDS SUMMARY | 2025-01-30 16:26 | XMS_ITS ---
Author Organization [employer] [facility] Address [address] [facility] [address] [place] [address] Care Team Providers Care Auto Transmission Technician Name Role Phone JAMESON BOLES Primary Care Provider Unavailab Shama Francis Unavailable [phone] REASON FOR VISIT ? UTI Encounters Encounter Location Date Provider Diagnosis [facility] [employer] [address] [place] [address] 11/08/2024 Shama Blake Plan Of Treatment Next Appt Details Provider Name:Shama moyer, 10/13/2025 09:10:00 AM, [address] [facility], [address], [place], [address], Progress Notes * JAIR ROMODOB:1955 (69 yo F)Acc No.[id number]:11/08/2024 PROGRESS NOTES Patient:?JAIR ROMO Appointment Provider:?Shama moyer M.D. :1955???Age:68 Y???Sex:Female D ate:11/08/2024 Address:[address] [place], [place] [address] Pcp:JAMESON BOLES Subjective: * Chief Complaints: * ???1. ? UTI. * Medical History:?Essential ( primary) hypertension, Menopausal and female climacteric states, Postmenopausal bleeding, Direct infection of unspecified joint in infectious and parasitic diseases classified elsewhere, Unspecified abnormal cytological findings in specimens from cervix uteri, Hemorrhage of anus and rectum, Hyperlipidemia, unspecified, Atrophy of vulva, Personal history of cervical dysplasia, Postmenopausal atrophic vaginitis, Mastodynia, Postcoital and contact bleeding, Polyp of corpus uteri. * Uniform Maker History:?/ Para?3/2.?Sexual activity?currently sexually active.?Last Pap Smear:?10/12/24 NIL, NEG HPV, 09/13/20 NIL, NEG HPV, 05/20/2017 NIL, NEG HRHPV.?Mammogram:?01/22/24 < 50% density, 01/21/23 < 50% density, 01/20/22 < 50% density, 12/18/20 Unilat Left, 12/09/20 < 50% density, 11/04/19 < 50% density, 02/2018 normal, 07/25/2015 , < 50% density.?LMP and menses?Sodus.? Control:?Bilateral Tubal Ligation.?Colonoscopy?yes 2017.?Bone Density:?11/04/192011.? * OB History:?Total pregnancies?3.?Total living children?2.?NVD?2.? Objective: * Vitals:? Assessment: Plan: * Treatment: * Images: Billing Information: * Visit Code:? * Procedure Codes:? * Electronic signature of Ej Blake MD on 01/30/2025 at 04:25 PM EDT Sign off status: Pending * Appointment Provider:?Shama Blake M.D. Date:?11/08/2024 Generated for [place] zhou/Suzanne/eTashleighitting on:?01/30/2025 04:25 PM EDT
== END 2025-01-30 15:50 | disposition home or self-care (01) ==
PROVIDERS: PCP Family Medicine; Visit Provider Urology
DX: Z13.9 Encounter for screening, unspecified (principal)

== ENCOUNTER 2025-04-26 14:17 | Outpatient (AMB) | payer OTHER, MEDICARE, SELFPAY ==
--- OUTSIDE RECORDS SUMMARY | 2025-04-26 14:20 | XMS_ITS | Patient Health Record ---
Author Organization [facility] Susan nkio Cruzito Address [address] [facility] [place] [address] Care Team Providers Care Engraver Flatware Name Role Phone Veronique YEUNG, Sara Primary Care Provider Meghna Mercedes Unavailable [phone] Reason For Referral No Information Medications Medication SIG (Take, Route, Frequency, Duration) Notes Start Date End Date Status Feldene 20 MG 1 capsule with food Orally Once a day for 30 day(s) 09/28/2018 Not-Taking Lisinopril 10 MG 1 tablet Orally Once a day Active Pravastatin Sodium 20 MG 1 tablet Orally Once a day Active Immunizations Vaccine Route Administration Date Status Comme nts Influenza Unknown 09/28/2018 Administered Social History Tobacco Use: Social History Observation Description Date Details (start date - stop date) Never Smoker NA - NA Tobacco Use/Smoking Question Answer Notes Are you a: nonsmoker Additional Findings: Tobacco Non-User Current no n-smoker Alcohol Screen Question Answer Notes Did you have a drink containing alcohol in the p ast year? No Points 0 Interpretation Negative Tobacco use other than smoking: Question Answer Notes Are you an other tobacco user? No Problems Problem Type SNOMED Code ICD Code Onset Dates Problem Status W/U Status Risk Notes Problem Acquired hallux valgus (10562052) Hallux valgus (acquired), right foot (M20.11) Active confirmed Problem Acquired hammer toe of right foot (2316237761764 105) Other hammer toe(s) (acquired), right foot (M20.41) Active confirmed Problem Acquired hammer toe of left foot (7047561511164 103) Other hammer toe(s) (acquired), left foot (M20.42) Active confirmed Plan Of Treatment Pending Test Test Name Order Date X ray : Foot, left 3V 09/28/2018 Insurance Providers Payer Name Payer Address Payer Phone Subscriber Number Group Number Insured Name Patient Relationship to Insured Coverage Start Date Coverage End Date [facility] [address] [place] [phone] [id number] Vanesa Hernández Self - patient is the insured Medical (General) History Medical History History ICD Code Arthritis rheumatoid arthritis osteoarthritis Back,Hip,and Knee pain Broken bones CAD (Cholesterol) Cancer Headaches/Migraines High blood pressure Measles Surgical History Surgery Date(Month/Year) Knee 02/2015 Hospitalization History Reason Date(Month/Year) childbirth
--- NOTE | 2025-04-26 15:01 | A.OFFVIS_ITS ---
Intake Visit Reasons: cysto Intake Note: Patient presents today for cystoscopy Lot: [id number] Exp:11-27-2027 Urology Medication:Solifenacin Blood Thinner:none Antibiotic Allergies:none Allergies No Known Allergies Allergy (Verified 04/26/25 15:07) Medication List - Last Reconciled 04/26/25 by Pepper Escobar MD estradiol 0.01%(0.1mg/gram) (Estrace) Apply a pea-sized amount by fingertip vaginally daily at bedtime levothyroxine 25 mcg PO DAILY losartan 75 mg PO DAILY solifenacin (Vesicare) 10 mg PO DAILY 30 days HPI Comments Details: 04/26/25--So is a 69-year-old female who was referred due to persistent UTI symptoms of frequency. Here for cystoscopy. Cystoscopy findings: Prominent vasculature, mild erythema consistent with cystitis, no suspicious bladder lesions visualized. Detrol LA 4 mg daily for urinary symptoms - Take pyridium 200 mg daily for 3 days for burning sensation - Continue intravaginal estradiol (Vagifem) as prescribed 01/30/25---So is a 69-year-old female who was referred due to persistent UTI symptoms of frequency. The patient states that she had her scheduled manager news appointment in 10/12/2024 at that time her manager news told her that she had a UTI. She was treated with the antibiotics. She states that the symptoms of urinary frequency did not completely resolve. She also has some intermittent dysuria. She states her manager news sent her for a renal ultrasound bladder ultrasound and pelvic ultrasound. I received the ultrasound reports kidney and bladder ultras 4 mg daily ound are within normal limits. She states that her manager news placed her on estradiol suppository twice a week. I have discussed further evaluation with office cystoscopy will send urine for surveillance culture and cytology. I have discussed treatment of urinary symptoms with Pyridium x 3 dys and anticholinergic Detrol LA 4mg daily. Review of Systems Const All systems reviewed & are unremarkable except as noted in HPI and below Reports no additional complaints Eyes Reports no additional complaints ENT Reports no additional complaints Card Reports no additional complaints Resp Reports no additional complaints GI Reports no additional complaints Reports as per HPI Musc Reports no additional complaints Skin/Breast Reports system reviewed and no additional complaints, except as documented Neuro Reports no additional complaints Psych Reports no additional complaints Endo Reports no additional complaints Ghanshyam/Lymph Reports no additional complaints Aller/Immun Reports no additional complaints Office Procedures Cystoscopy Consent Discussed risk and benefit or proposed procedure with the patient. Information consent for procedure given to the patient. Discussed technical aspects, risks, benefits and alternatives in full. Addressed all of the patient's questions and concerns regarding the procedure. The patient demonstrated knowledge and understanding. They wish to proceed with this procedure. Preparation The patient was prepped in the usual manner. A gas station manager was present and in the room. Genitalia was prepped with betadine solution in a sterile manner. Lidocaine Jelly 2% was placed into the urethra and 16Fr flexible Olympus cystoscope was inserted into the meatus after adequate lubrication. Procedure Time out per protocol performed. Speculum used as indicated for adequate visualization of urethra, the flexible cystoscope is passed transurethrally: The bladder was inspected in its entirety with utilization retroflexion displaying: Tumor(s): no suspicious bladder lesions visualized Trabeculation: NA Mucosal Erthema: Mild, prominent vasculature Orifices: normal shape and position Urethra: normal Cystoscopy findings: Prominent vasculature, mild erythema consistent with cystitis, no suspicious bladder lesions visualized [id number] DISPOSABLE SCOPE URO-G FLEXIBLE SCOPE Procedure code (CPT) selection complete Office Meds lidocaine HCl 2 % mucosal jelly in applicator Performing Provider: Pepper Escobar MD [facility] Administered by: Dee Fraga RN on 04/26/25 15:01 Dose Route Admin Location Dispensed Lot Number Expiration Date ND Postpartum Rn 20 mL intra-urethral 20 mL ciprofloxacin HCl 500 mg tablet Performing Provider: Pepper Escobar MD Performing [facility] Administered by: Dee Fraga RN on 04/26/25 15:01 Dose Route Admin Location Dispensed Lot Number Expiration Date NDC Postpartum Rn 500 mg PO 1 tab phenazopyridine 200 mg tablet Performing Provider: Pepper Escobar MD Performing Location: [facility] Administered by: Dee Fraga RN on 04/26/25 15:01 Dose Route Admin Location Dispensed Lot Number Expiration Date ND Postpartum Rn 200 mg PO 1 tab Results AMB Urinalysis, Automated UA Leukoctes 15 Luciano/uL Last Edit by SMA Chaitanya on 04/26/25 16:23 UA Nitrite Last Edit by Dharmesh Gusman, [facility] on 04/26/25 16:23 UA Urobilinogen 3.5 mg/dL Last Edit by Dharmesh Gusman, [facility] on 04/26/25 16:23 UA Protein 15 mg/dL Last Edit by Dharmesh Gusman, [facility] on 04/26/25 16:23 UA pH 6.0 Last Edit by Dharmesh Gusman, [facility] on 04/26/25 16:23 UA Blood 0 Michael/uL Last Edit by Dharmesh Gusman, [facility] on 04/26/25 16:23 UA Specific Franklin 1.015 Last Edit by Dharmesh Gusman, [facility] on 04/26/25 16:23 UA Ketone Last Edit by Dharmesh Gusman, [facility] on 04/26/25 16:23 UA Bilirubin 0 mg/dL Last Edit by Dharmesh Gusman, [facility] on 04/26/25 16:23 UA Glucose 0 mg/dL Last Edit by Dharmesh Gusman, [facility] on 04/26/25 16:23 Results Reviewed Results Reviewed: Laboratory Last Values Urine pH (Auto) 6.0 04/26/25 16:09 Specific [place] (Auto) 1.015 04/26/25 16:09 Urine Protein (Auto) 15 mg/dL 04/26/25 16:09 Glucose (UA)(Auto) 0 mg/dL 04/26/25 16:09 Urine Blood (Auto) 0 Michael/uL 04/26/25 16:09 Urine Bilirubin (Auto) 0 mg/dL 04/26/25 16:09 Urine Urobilinogen (Auto) 3.5 mg/dL 04/26/25 16:09 Leukocyte Esterase (Auto) 15 Luciano/uL 04/26/25 16:09 Assessment & Plan Assessment & Plan (1) Urinary frequency: Code(s): R35.0 - Frequency of micturition Category: Medical (2) Dysuria: Code(s): R30.0 - Dysuria Category: Medical (3) Pelvic pain in female: Code(s): R10.2 - Pelvic and perineal pain Category: Medical (4) OAB (overactive bladder): Code(s): N32.81 - Overactive bladder Category: Medical Plan Detrol LA 4 mg daily for urinary symptoms - Take pyridium 200 mg daily for 3 days for burning sensation - Continue intravaginal estradiol (Vagifem) as prescribed Orders: Orders AMB Urinalysis Automated 04/26/25 Z13.9 - Encounter for screening, unspecified AMB Cystoscopy 04/26/25 R30.0 - Dysuria Medications: New estradiol 0.01%(0.1mg/gram) (Estrace) Apply a pea-sized amount by fingertip vaginally daily at bedtime 42.5 grams 1RF Refilled solifenacin (Vesicare) 10 mg PO DAILY 90 tabs 1RF 30 days Discontinued phenazopyridine take with food Discontinued Reason: Patient Completed Course 200 mg PO DAILY 3 days 3 tabs 0RF Coding Level of Care Code Procedure Only Diagnoses Urinary frequency R35.0 Dysuria R30.0 Pelvic pain in female R10.2 OAB (overactive bladder) N32.81 CPT Codes Cystoscopy - CPT: 37151-Anxjrdqzhw ([id number])
== END 2025-04-26 15:46 | disposition home or self-care (01) ==
LOC: HO.HUSH 14:18
PROVIDERS: PCP Family Medicine; Visit Provider Urology
DX: R30.0 Dysuria (principal); Z13.9 Encounter for screening, unspecified
CPT/HCPCS: 52000

== ENCOUNTER → 2025-04-26 14:17 | Outpatient (BNVA) | payer OTHER, MEDICARE, SELFPAY | PROVIDERS: PCP Family Medicine; Visit Provider Urology | DX: R30.0 Dysuria (principal); R35.0 Frequency of micturition; N32.81 Overactive bladder; R10.2 Pelvic and perineal pain | CPT/HCPCS: 52000; 81003 ==

== ENCOUNTER 2025-08-03 14:06 | Outpatient (AMB) | payer MEDICARE, OTHER, SELFPAY ==
--- OUTSIDE RECORDS SUMMARY | 2024-11-08 06:40 | XMS_ITS ---
Author Organization [facility] Address [address] [place] [address] Care Team Providers Care Assortment Planner Name Role Phone JAMESON BOLES Primary Care Provider Unavailab Shama Francis Unavailable [phone] REASON FOR VISIT ? UTI Encounters Encounter Location Date Provider Diagnosis [facility] [address] [place] [address] 11/08/2024 Shama Blake Plan Of Treatment Next Appt Details Provider Name:Shama moyer, 10/13/2025 09:10:00 AM, [address], [address], [place], [address], Progress Notes * JAIR ROMODOB:1955 (69 yo F)Acc No.[id number]:11/08/2024 PROGRESS NOTES Patient: JAIR LAYTON Appointment Provider: Thiago Blake M.D. :1955 A ge:68 Y S ex:Female Date:11/08/2024 Address:[address] [place], [place] [id number] Pcp:JAMESON BOLES Subjective: * Chief Complaints: * 1 . ? UTI. * Medical History: E ssential (primary) hypertension, Menopausal and female climacteric states, Postmenopausal bleeding, Direct infection of unspecified joint in infectious and parasitic diseases classified elsewhere, Unspecified abnormal cytological findings in specimens from cervix uteri, Hemorrhage of anus and rectum, Hyperlipidemia, unspecified, Atrophy of vulva, Personal history of cervical dysplasia, Postmenopausal atrophic vaginitis, Mastodynia, Postcoital and contact bleeding, Polyp of corpus uteri. * Cleaners History: G ravida/ Para 3 /2. S exual activity c urrently sexually active. L ast Pap Smear: 1 12/12/23 NIL, NEG HPV, 09/13/20 NIL, NEG HPV, 05/20/2017 NIL, NEG HRHPV. M ammogram: < 50% density, 01/21/23 < 50% density, 01/20/22 < 50% density, 12/18/20 Unilat Left, 12/09/20 < 50% density, 11/04/19 < 50% density, 02/2018 normal, 07/25/2015 , < 50% density. L MP and menses M leela. B irth Control: B ilateral Tubal Ligation. C olonoscopy y es 2017. B one Density: 1 01/05/192011. * OB History: T otal pregnancies 3 . T otal living children 2 . N VD 2 . Objective: * Vitals: Assessment: Plan: * Treatment: * Images: Billing Information: * Visit Code: * Procedure Codes: * Electronic signature of Ej Blake MD on 08/03/2025 at 05:54 PM EDT Sign off status: Pending * Appointment Provider: Thiago Blake M.D. Date: 01/09/2024 Generated for [place] zhou/Suzanne/Teditting on: 0 08/03/2025 05:54 PM EDT
--- NOTE | 2025-08-03 14:07 | A.OFFVIS_ITS ---
Intake Visit Reasons: 3M F/U Intake Note: Patient presents today via telehealth for 3m follow up Urology Medication:Solifenacin Blood Thinner:none Antibiotic Allergies:none Allergies No Known Allergies Allergy (Verified 08/03/25 14:08) Medication List - Last Reconciled 08/03/25 by Pepper Escobar MD estradiol 0.01%(0.1mg/gram) (Estrace) Apply a pea-sized amount by fingertip vaginally daily at bedtime levothyroxine 25 mcg PO DAILY losartan 75 mg PO DAILY solifenacin (Vesicare) 10 mg PO DAILY 30 days HPI Comments Details: 08/03/25--Vanesa is a 69-year-old female who has persistent UTI symptoms, urinary frequency, microscopic hematuria. Last visit 04/26/2025 office cystoscopy- findings consistent with mild cystitis. Urine cytology 97521- for malignant cells. Continue VESIcare and Estrace cream. 04/26/25--So is a 69-year-old female who was referred due to persistent UTI symptoms of frequency. Here for cystoscopy. Cystoscopy findings: Prominent vasculature, mild erythema consistent with cystitis, no suspicious bladder lesions visualized. Detrol LA 4 mg daily for urinary symptoms - Take pyridium 200 mg daily for 3 days for burning sensation - Continue intravaginal estradiol (Vagifem) as prescribed 01/30/25---So is a 69-year-old female who was referred due to persistent UTI symptoms of frequency. The patient states that she had her scheduled manager labor relations appointment in 10/12/2024 at that time her manager labor relations told her that she had a UTI. She was treated with the antibiotics. She states that the symptoms of urinary frequency did not completely resolve. She also has some intermittent dysuria. She states her manager labor relations sent her for a renal ultrasound bladder ultrasound and pelvic ultrasound. I received the ultrasound reports kidney and bladder ultras 4 mg daily ound are within normal limits. She states that her manager labor relations placed her on estradiol suppository twice a week. I have discussed further evaluation with office cystoscopy will send urine for surveillance culture and cytology. I have discussed treatment of urinary symptoms with Pyridium x 3 dys and anticholinergic Detrol LA 4mg daily. Review of Systems Const All systems reviewed & are unremarkable except as noted in HPI and below Reports no additional complaints Eyes Reports no additional complaints ENT Reports no additional complaints Card Reports no additional complaints Resp Reports no additional complaints GI Reports no additional complaints Reports as per HPI Musc Reports no additional complaints Skin/Breast Reports system reviewed and no additional complaints, except as documented Neuro Reports no additional complaints Psych Reports no additional complaints Endo Reports no additional complaints Ghanshyam/Lymph Reports no additional complaints Aller/Immun Reports no additional complaints Telehealth Telehealth Telehealth Platform: [employer] Location of provider rendering services: practice address Location of patient: address on file Patient Identification confirmed using: Name, : Yes Telehealth method: voice only Patient verbally consented to treatment: Yes Patient verbally consented to billing insurance company: Yes Patient informed of any privacy concerns related to visit: Yes Minutes spent on Phone/Video with Pt.: 14 Results Reviewed Results Reviewed: Collected: 01/30/25 Location: [facility] Received: 01/31/25 Diagnosis Urine, cytology: Negative for high-grade urothelial carcinoma. COMMENT: Review of the cytology preparation demonstrates a paucicellular specimen composed of few squames and rare urothelial cells. There is no significant atypia seen. Clinical History Encounter for screening, unspecified Material Received Urine Gross Description Received is 10 cc of clear yellow fluid from which a ThinPrep slide is prepared. Assessment & Plan Assessment & Plan (1) Urinary frequency: Code(s): R35.0 - Frequency of micturition Category: Medical (2) Dysuria: Comment: Resolved Code(s): R30.0 - Dysuria Category: Medical (3) OAB (overactive bladder): Code(s): N32.81 - Overactive bladder Category: Medical (4) Microscopic hematuria: Code(s): R31.29 - Other microscopic hematuria Category: Medical Plan Continue VESIcare and Estrace cream Medications: Refilled solifenacin (Vesicare) 10 mg PO DAILY 90 tabs 3RF 30 days estradiol 0.01%(0.1mg/gram) (Estrace) Apply a pea-sized amount by fingertip vaginally daily at bedtime 42.5 grams 2RF Patient Instructions: The patient had an opportunity to ask questions regarding treatment plan. The patient expressed understanding and agreement with the above treatment plan. The patient is aware they should contact our office by phone for worsening of their current condition or the appearance of new symptoms. Compliance is encouraged with any medications and followup testing that is ordered. It is a privilege to be allowed the opportunity to participate in the urologic care of your patient. If you have any questions or concerns regarding treatment for the above conditions please do not hesitate to contact me. The office telephone contact is [phone]. This note is constructed in part using voice recognition software. While every effort has been made to ensure accuracy broadcast checker errors may have been included. Yours sincerely, Pepper Escobar MD Coding Level of Care Code Tele Est Pt Level 4 (83036) Diagnoses Urinary frequency R35.0 Dysuria R30.0 OAB (overactive bladder) N32.81 Microscopic hematuria R31.29
--- OUTSIDE RECORDS SUMMARY | 2025-08-03 17:54 | XMS_ITS | Patient Health Record ---
Author Organization [facility] Susan niko Cruzito Address [address] [place] [address] Care Team Providers Care Mental Health Practitioner Name Role Phone Veronique YEUNG, Sara Primary Care Provider Meghna Mercedes Unavailable [phone] Reason For Referral No Information Medications Medication SIG (Take, Route, Frequency, Duration) Notes Start Date End Date Status Feldene 20 MG 1 capsule with food Orally Once a day; Duration: 30 day(s) 09/28/2018 Not-Taking Lisinopril 10 MG [...] Status Risk Notes Problem Acquired hallux valgus (62646606) Hallux valgus (acquired), right foot (M20.11) Active confirmed Problem Acquired hammer toe of right foot (8491315615244 105) Other hammer toe(s) (acquired), right foot (M20.41) Active confirmed Problem Acquired hammer toe of left foot (5279400064518 103) Other hammer toe(s) (acquired), left foot (M20.42) Active confirmed Plan Of Treatment Pending Test Test Name Order Date X ray : Foot, left 3V 09/28/2018 Insurance Providers Payer Name Payer Address Payer Phone Subscriber Number Group Number Insured Name Patient Relationship to Insured Coverage Start Date Coverage End Date [facility] [address] [place] [address] [id number] Vanesa Hernández Self - patient is the insured Medical (General) History Medical History History ICD Code Arthritis rheumatoid arthritis osteoarthritis Back,Hip,and Knee pain Broken bones CAD (Cholesterol) Cancer Headaches/Migraines High blood pressure Measles Surgical History Surgery Date(Month/Year) Knee 02/2015 Hospitalization History Reason Date(Month/Year) childbirth
--- OUTSIDE RECORDS SUMMARY | 2025-08-03 17:54 | XMS_ITS | Clinical Summary ---
[facility] Organization [facility] Address [address] [place] [address] Care Team Providers Care Football Pad Repairer Name Role Phone Sara Piper MD Primary [...] 1 - PCV) 2021 Influenza Vaccine (#1) 2025 RSV Adult > 60+ Yrs or Pregn ant (1 - 1-dose 75+ series) 2031 Hepatitis B Vaccines Aged Out No long er eligible based on patient's age to complete this topic RSV Ped < 20 months Aged Out No longe r eligible based on patient's age to complete this topic Care Teams Football Pad Repairer Relationship Specialty Start Date End Date Sara Piper MD [address] [place] [address] PCP - General Family Medicine 10/21/18
--- OUTSIDE RECORDS SUMMARY | 2025-08-03 17:54 | XMS_ITS | Patient Health Record ---
Author Organization [facility] Address [address] [place] [address] Care Team Providers Care Animal Treatment Investigator Name Role Phone JAMESON BOLES Primary Care Provider Unavailab drea BlakeShama Unavailable [phone] Allergies No Known Allergies Results Component Value Reference Range Notes Urinalysis Reviewed date:11/09/2024 01:12:17 PM Interpretation: Performing Lab: Notes/Report: NITRITE Neg PH 6.0 PROTEIN Trace S.G 1.015 WBC Trace GLUCOSE Neg KETONES Neg UROBILINOGEN Neg BILIRUBIN Neg BLOOD Trace Urinalysis, Complete-[id number] Reviewed date:11/11/2024 08:10:54 AM Interpretation: Performing Lab:[facility] [place], [facility], Phone - [phone], Director - Mary Notes/Report: Specific [place] 1.018 1.005-1.030 pH 6.5 5.0-7.5 Urine-Color Yellow [...] Bacteria None seen None seen/Few Urine Culture, Routine-[id number] Reviewed date:11/11/2024 09:34:13 AM Interpretation: Performing Lab:[facility] [place], [address] [facility], [place], Phone - [phone], Director - MDJodry Notes/Report: Urine Culture, Routine Final report Result 1 Culture shows less than 10,000 colony forming units of bacteria per milliliter of urine. This colony count is not generally considered to be clinically significant. PDF Report Reviewed date:11/11/2024 08:10:02 AM Interpretation: Performing Lab:[facility], [address] [facility], Phone - [phone], Director - Mary Notes/Report: [id number] IGP No Culture 30 Plus Reviewed date:10/25/2024 08:40:06 PM Interpretation: Performing Lab:[facility], [address] [place] [address], Phone - [phone], Director - Piedad Notes/Report: Clinical Information:Vaginal/Cervical, LMP: Men o [id number] Dates / Results....09/13/20 NIL, Neg HPV Other..............Post Menopausal No. of containers..01 ThinPrep Vial DIAGNOSIS: EPITHELIAL CELL ABNORMALITY. ATYPICAL SQUAMOUS CELLS OF UNDETERMINED SIGNIFICANCE (ASC-US). Specimen adequacy: Satisfactory for evaluation. Endocervical and/or squamous metaplastic cells (endocervical component) are present. Clinician provided ICD10: Z0 1.419 Performed by: Lexie Wills, Hairspring Assembler (ASCP) Electronically signed by: Jed Grimaldo MD, [...] Criteria not met, HPV Genotype not performed. Urine Culture, Routine-[id number] Reviewed date:10/14/2024 08:20:21 AM Interpretation: Performing Lab:[facility], [address] [facility], Phone - [phone], Director - [facility] Notes/Report: Urine Culture, Routine Final report Result [...] reported for Streptococcus pyogenes (group A). (CLSI) Urinalysis, Complete-[id number] Reviewed date:10/14/2024 08:20:37 AM Interpretation: Performing Lab:[facility] [place], [address], [place], Phone - [phone], Director - NDCecy Notes/Report: Specific [place] 1.016 1.005-1.030 pH 6.5 5.0-7.5 Urine-Color Yellow [...] None seen /lpf Bacteria Many None seen/Few Urinalysis Reviewed date:10/12/2024 12:49:44 PM Interpretation: Performing Lab: Notes/Report: NITRITE Neg PH 6.0 PROTEIN Trace S.G 1.015 WBC Large GLUCOSE Neg KETONES Neg UROBILINOGEN Neg BILIRUBIN Neg BLOOD Small PDF Report Reviewed date:10/25/2024 08:40:20 PM Interpretation: Performing Lab:[facility], [address] [place] [address], Phone - [phone], Director - [facility] Notes/Report: Clinical Information:Vaginal/Cervical, LMP: Men o [id number] Dates / Results....09/13/20 NIL, Neg HPV Other..............Post Menopausal No. of containers..01 ThinPrep Vial PDF Report Reviewed date:10/14/2024 08:15:01 AM Interpretation: Performing Lab:[facility], [address], [place], Phone - [phone], Director - Mary Notes/Report: Reason For Referral No Information Medications Medication SIG (Take, Route, Frequency, Duration) Notes Start Date End Date Status Estradiol 10 MCG 1 tablet Vaginal Two times a Week; Duration: 90 days 11/09/2024 Active Levothyroxine Sodium 25 MCG Oral; Duration: 90 Active Losartan Potassium 50 MG Oral; Duration: 90 Active Vitamin D 25 MCG (1000 UT) 1 tablet Oral ly Once a day; Duration: 30 day(s) Active Pravastatin Sodium 20 MG 1 tablet Orally Once a day Active Augmentin 500-125 MG 1 tablet Orally mandie ry 12 hrs; Duration: 7 day(s) 10/14/2024 Active Social History Tobacco [...] Status Risk Notes Problem Postmenopausal atrophic vaginitis (27749969) Postmenopausal atrophic vaginitis (N95.2) Active confirmed Problem Polyp of corpus uteri (31620251) Polyp of corpus uteri (N84.0) Active confirmed Problem Atrophy of vulva (326348883) Atrophy of vulva (N90.5) Active confirmed Problem Postcoital bleeding (56497698) Postcoital and contact bleeding (N93.0) Active confirmed Problem History of dysplasia of cervix (048501858) Personal history of cervical dysplasia (Z87.410) Active confirmed Problem Essential hypertension (31451293) Unspecified essential hypertension (401.9) Active confirmed Major Problem Infective arthritis (disorder) (582401188) Unspecified infective arthritis, site unspecified (711.90) Active confirmed Major Problem Postmenopausal bleeding (98197648) Postmenopausal bleeding (627.1) Active confirmed Major Problem Menopausal symptom (09254689) Symptomatic menopausal or female climacteric states (627.2) Active confirmed Major Problem Atypical glandular cells on cervical Papanicolaou smear (268424009) Abnormal glandular Papanicolaou smear of cervix (795.00) Active confirmed Major Problem Gynecological examination normal (942512994642602) Routine gynecological examination (V72.31) Active confirmed Problem Screening for malignant neoplasm of colon (980483537) Special screening for malignant neoplasms, colon (V76.51) Active confirmed Major Vital Signs Temperature 97.7 degrees Fahrenheit 11/09/2024 Blood pressure diastolic 80 mm Hg 11/09/2024 Height 63 in 11/09/2024 Blood pressure systolic 140 mm Hg 11/09/2024 Weight 205 lbs 11/09/2024 BMI 36.31 kg/m2 11/09/2024 Encounters Encounter Location Date Provider Diagnosis Total [address] [address] 10/12/2024 Shama Blake Encounter for gynecological examination (general) (routine) without abnormal findings Z01.419 ; Encounter for screening mammogram for malignant neoplasm of breast Z12.31 ; Unspecified lump in the right breast, overlapping quadrants N63.15 ; Nocturia R35.1 ; Personal history of cervical dysplasia Z87.410 ; Encounter for screening for osteoporosis Z13.820 and Postmenopausal atrophic vaginitis N95.[address] [address] 11/09/2024 Shama Blake Frequency of micturition R35.0 ; Left lower quadrant pain R10.32 and Postmenopausal atrophic vaginitis N95.[address] [address] 10/14/2024 Shama Blake Total [address] [address] 11/29/2024 Shama Blake Assessments Encounter Date Diagnosis [...] Sonohysterogram 12/26/2021 MAMMOGRAM, SCREENING 10/01/2022 MAMMOGRAM, SCREENING 09/30/2021 MAMMOGRAM, SCREENING 10/12/2024 MAMMOGRAM, SCREENING 04/18/2015 Urinalysis 09/30/2021 Urinalysis 12/26/2021 Urinalysis 07/06/2018 Urinalysis 08/24/2019 Ultrasound : Retroperitoneal 11/09/2024 ENDOMETRIAL BX 12/26/2021 DIAGNOSTIC MAMMOGRAM, LEFT BREAST 2023 BONE DENSITY 07/06/2018 BONE DENSITY 10/07/2023 BONE DENSITY 10/12/2024 MM Digital Mammo Screening 07/06/2018 MM Digital Mammo Screening 10/12/2024 MM Digital Mammo Screening 10/07/2023 MM Digital Mammo Screening 10/01/2022 MM Digital Mammo Screening 09/30/2021 Left Breast Ultrasound 10/12/2024 PELVIC ULTRASOUND W/TRANSVAGINAL 024 Next Appt Details Provider Name:Shama moyer, 10/13/2025 09:10:00 AM, [address], [address], [place], [address], Insurance Providers Payer Name Payer Address Payer Phone Subscriber Number Group Number Insured Name Patient Relationship to Insured Coverage Start Date Coverage End Date MEDICARE [address] [facility] [id number] JAIR ROMO Self - patient is the insured [facility] [address] [place] [address] [id number] JAIR ROMO Self - patient is [...]
--- OUTSIDE RECORDS SUMMARY | 2025-08-03 17:55 | XMS_ITS | Clinical Summary ---
Author Organization [facility] Address [address] [place] [id number] Phone Care Team Providers Care Plant Tech Name Role Phone Saar Piper MD Primary Care Provider [phone] Allergies No known active allergies Medications lisinopril (PRINIVIL,ZESTRI L) 10 MG tablet Take 10 mg by mouth daily. 1 01/17/2019 Active pravastatin (PRAVACHOL) 20 MG tablet Take 1 tablet by mouth daily. 02/21/2019 Active Active Problems No known active problems Social History Tobacco Use Types Packs/Day Years Used Date Smoking Tobacco: Never Smokeless Tobacco: Never Alcohol Use Standard Drinks/Week Comments Not Currently 0 (1 standard drink = 0.6 oz pur e alcohol) Education Answer Date Recorded Are you interested in more education? Not on elver e 03/19/2023 Are you concerned about learning? Not on file 03/19/2023 No 03/19/2023 No 03/19/2023 Digital Access Answer Date Recorded No 04/20/2023 No 04/20/2023 No 04/20/2023 Reliable internet access at home? Not on file 04/20/2023 Device with a working camera? Not on file Comments Unknown Sex and Gender Information Value Date Recorded Sex Assigned at Not on file Legal Sex Female 7:45 PM EST Gender Identity Not on file Sexual Orientation Not on file Last Filed Vital Signs Vital Sign Reading Time Taken Comments Blood Pressure 156/79 03/15/2013 10:34 AM EDT Pulse 56 03/15/2013 10:34 AM EDT Temperature - - Respiratory Rate - - Oxygen Saturation - - Inhaled Oxygen Concentration - - Weight 86.2 kg (190 lb) 02/28/2019 12:42 PM EDT Height 160 cm (5' 3 ) 02/28/2019 12:42 PM EDT Body Mass Index 33.66 02/28/2019 12:42 PM EDT Plan of Treatment Health Maintenance Due Date Last Done Comments Adult Td,Tdap Booster 1956 CREATININE LEVEL 1956 LIPID PANEL 1956 POTASSIUM LEVEL 1956 DEPRESSION SCREENING 1968 HEPATITIS C SCREENING 1974 MAMMOGRAM 1996 COLOGUARD 2001 COLONOSCOPY 2001 COLORECTAL CANCER SCREENING 2001 FIT TEST 2001 FOBT 2001 SIGMOIDOSCOPY 2001 VIRTUAL COLONOSCOPY 2001 PNEUMOCOCCAL VACCINES (50+ y ears) (1 of 1 - PCV) 2006 ZOSTER VACCINES (1 of 2) 2006 OSTEOPOROSIS SCREENING INITI AL (ONE-TIME) 2021 COVID-19 VACCINE (2 - 2023-2 5 season) 2024 02/08/2021 INFLUENZA VACCINE (#1) 2025 RSV VACCINE (1 - 1-dose 75+ series) 2031 SMOKING STATUS SCREENING (On ce After 26 Yrs) Completed 02/28/2019 HEPATITIS A VACCINES Aged Out No long er eligible based on patient's age to complete this topic HIB VACCINES Aged Out No longer eligi ble based on patient's age to complete this topic MENINGOCOCCAL VACCINES (ACWY) Aged Out No longer eligible based on patient's age to complete this topic MENINGOCOCCAL VACCINES (B) Aged Out N o longer eligible based on patient's age to complete this topic Medical Devices Not on file [facility] IN[facility]MN[facility] [employer] TOTAL CHOICE INDEMNITY [employer] TOTAL CHOICE INDEMNITY [employer] [facility] TOTAL CHOICE INDEMNITY [employer] [facility] TOTAL CHOICE INDEMNITY [employer] [facility] TOTAL CHOICE INDEMNITY [employer] TOTAL CHOICE INDEMNITY [employer] [facility] TOTAL CHOICE INDEMNITY [facility] TOTAL CHOICE INDEMNITY Care Teams Plant Tech Relationship Specialty Start Date End Date Sara Piper MD PCP - General 02/22/19 Additional Source Comments The information contained in this document represents components of the legal health record. It is not the complete legal health record.[facility]
== END 2025-08-03 15:00 | disposition home or self-care (01) ==
LOC: HO.HUSH 14:06
PROVIDERS: PCP Family Medicine; Visit Provider Urology
DX: R35.0 Frequency of micturition (principal); R30.0 Dysuria; N32.81 Overactive bladder; R31.29 Other microscopic hematuria
CPT/HCPCS: 99214